=== PATIENT | male | born 1985 | race Caucasian/White ===

== ENCOUNTER 2016-08-13 22:53 | Emergency (ER) | payer OTHER ==
[~2016-08-13] VITALS: Ht 172.7 cm; Wt 92.5 kg
[~2016-08-13 22:53] MED LIST: CIPR500T4 PO; IBUP-1542 PO
[2016-08-13 22:55] VITALS: Ht 172.7 cm; Wt 92.5 kg
[2016-08-14] MEDS ORDERED: AZITHROMYCIN 250 MG TAB PO STA (00:12)
[2016-08-14] MEDS ORDERED: LIDOCAINE 1% (MDV) 20 ML INJ SC STA (00:12)
[2016-08-14] MEDS ORDERED: CEFTRIAXONE 250 MG INJ IM STA (00:12)
[2016-08-14] MEDS ORDERED: ACETAMINOPHEN 325 MG TAB PO STA (00:22)
--- NOTE | 2016-08-14 00:22 | ERD ---
ER Documentation Chief Complaint Date/Time DATE: 08/14/16 TIME: 00:20 Chief Complaint painful/burning urination x 3 days HPI This is a 31-year-old male presenting to the emergency department complaining of painful urination, penile discharge for the past few days. Patient rates as moderate in severity. He states that he had unprotected sex with a woman. He denies any fever. Denies any penile lesions ROS All systems reviewed and are negative except as per history of present illness. Medications Home Meds Active Scripts Ibuprofen* (Motrin*) 600 Mg Tab, 600 MG PO Q6H Y for PAIN AND OR ELEVATED TEMP, #30 TAB Prov:JADEN OLGUIN NP 05/29/16 Ciprofloxacin Hcl* (Ciprofloxacin Hcl*) 500 Mg Tablet, 500 MG PO BID for 5 Days , TAB Prov:AMPARO DAILEY PA-C 03/14/16 Allergies Allergies: Coded Allergies: No Known Allergy (Unverified , 08/13/16) PMhx/Soc Medical and Surgical Hx: pt denies Medical Hx History of Surgery: Yes (foot surgery) Anesthesia Reaction: No Hx Neurological Disorder: No Hx Respiratory Disorders: No Hx Cardiac Disorders: No Hx Psychiatric Problems: No Hx Miscellaneous Medical Probl: No Hx Alcohol Use: No Hx Substance Use: No Hx Tobacco Use: No Physical Exam Vitals Vital Signs Date Time Temp Pulse Resp B/P Pulse Ox O2 Delivery O2 Flow Rate FiO2 08/13/16 22:55 97.3 115 20 143/91 98 Physical Exam GENERAL: well-developed/well-nourished, in no apparent distress, non-toxic appearing HENT: NC/AT, moist mucous membranes EYES: Conjunctiva normal NECK: Supple, no lymphadenopathy PULM: CTA bilaterally, no rales, rhonchi, or wheezing heard CV: Normal S1S2, RRR, good capillary refill GI: Soft, non-distended, non-tender to palpation Normal bowel sounds, no masses or organomegaly felt on exam No gross peritonitis, no bruits Negative Rovsing, negative Campos, negative McBurney's point, Negative CVAT BACK: No masses EXT: No clubbing, cyanosis, or edema NEURO: Alert and Orientated SKIN: Intact, normal turgor PSYCH: Normal mood and mentation Results 24 hrs Current Medications Medications (Trade) Dose Ordered Sig/Keri Route PRN Reason Start Time Stop Time Status Last Admin Dose Admin Azithromycin (Zithromax) 1,000 mg ONCE STAT PO 08/14/16 00:12 08/14/16 00:15 DC Ceftriaxone Sodium (Rocephin) 250 mg ONCE STAT IM 08/14/16 00:12 08/14/16 00:15 DC Lidocaine (Xylocaine 1% (Mdv) 20 ml) 20 ml ONCE STAT SC 08/14/16 00:12 08/14/16 00:15 DC Procedures/MDM This is a 31-year-old male presenting to the emergency department complaining of painful urination and penile discharge for the past 3 days, signs and symptoms most consistent with gonorrhea and chlamydia. I have a low suspicion for bacteremia, nephrolithiasis or pyelonephritis. In the ED patient was given ibuprofen and Tylenol for pain. He was given to a 50 mg IM of ceftriaxone and 1000 mg of azithromycin tablet. I discussed with patient that he suitable to follow-up with the primary care physician for further evaluation management. I discussed return the emergency department for any worsening signs or symptoms. A urine culture and gonorrhea chlamydia urine test sent out. Departure Diagnosis: Primary Impression: Dysuria Condition: Stable Patient Instructions: What Are Sexually Transmitted Diseases (STDs)?, Std, Suspected (Culture Only), Urethritis, Male (Gonorrhea) Referrals: [facility] YOU HAVE RECEIVED A MEDICAL SCREENING EXAM AND THE RESULTS INDICATE THAT YOU DO NOT HAVE A CONDITION THAT REQUIRES URGENT TREATMENT IN THE EMERGENCY DEPARTMENT. FURTHER EVALUATION AND TREATMENT OF YOUR CONDITION CAN WAIT UNTIL YOU ARE SEEN IN YOUR DOCTORS OFFICE WITHIN THE NEXT 1-2 DAYS. IT IS YOUR RESPONSIBILITY TO MAKE AN APPOINTMENT FOR FOLOW-UP CARE. IF YOU HAVE A PRIMARY DOCTOR --you should call your primary doctor and schedule an appointment IF YOU DO NOT HAVE A PRIMARY DOCTOR YOU CAN CALL OUR PHYSICIAN REFERRAL HOTLINE AT IF YOU CAN NOT AFFORD TO SEE A PHYSICIAN YOU CAN CHOSE FROM THE FOLLOWING [facility] [address] [facility] [address] [facility] [address] [facility] [address] [facility] [address] [facility] [facility] [address] Additional Instructions: FOLLOW UP WITH YOUR PRIMARY CARE PHYSICIAN TOMORROW.Return to this facility if you are not improving as expected. Return to this facility if you are not improving as expected. FANTASMA TORRES PA-C Aug 14, 2016 00:22
[2016-08-14 00:25] LABS: ADD UMIC YES; URINE BLOOD (Dip) TRACE (NEGATIVE); URINE COLOR LT. YELLOW (YELLOW); URINE GLUCOSE (Dip) NEGATIVE (NEGATIVE); URINE KETONES (Dip) TRACE (NEGATIVE); URINE LEUKOCYTE ESTERASE (Dip) 2+ (NEGATIVE); URINE NITRITE (Dip) NEGATIVE (NEGATIVE); URINE UROBILINOGEN (Dip) 1.0 E.U./dL (0.1-1.0)
[2016-08-14] MEDS ORDERED: IBUPROFEN 600 MG TAB PO ONE (00:30)
[2016-08-14 00:32] LABS: URINE BILIRUBIN (Dip) NEGATIVE (NEGATIVE); URINE TOTAL PROTEIN (Dip) NEGATIVE (NEGATIVE)
[2016-08-14 00:48] LABS: BACTERIA,URINE MANY; MUCUS,URINE MODERATE; SQUAMOUS EPITHELIAL CELL,UR FEW
== END 2016-08-14 00:49 | disposition home or self-care (01) ==
LOC: FTE 22:53
DX: R30.0 Dysuria (principal)
CPT/HCPCS: 81001; 87086; 87591; 96372; J0696; Z7502; Z7610; 81003

== ENCOUNTER 2018-09-13 04:55 | Emergency (ER) | payer OTHER ==
[~2018-09-13] VITALS: Ht 172.7 cm; Wt 91.0 kg
[2018-09-13 05:15] VITALS: Ht 172.7 cm; Wt 91.0 kg
--- NOTE | 2018-09-13 07:51 | ERD ---
ER Documentation Chief Complaint Chief Complaint frequent/frequent urination x 4 days HPI This is a 33-year-old male presents to the ED with complaints of urinary frequency and urgency times 4 days. He states he has a history of UTI, last treated in 2017. He denies any associated fevers, chills, back pain, flank p ain, abdominal pain or any other symptoms. He states he is here with his partner who presents with similar symptoms. He reports unprotected sexual intercourse with his partner who may have been exposed to a STD. He denies any penile discharge or pain. He is requesting screening for STDs and treatment here as well. ROS All systems reviewed and are negative except as per history of present illness. Medications Home Meds Active Scripts Ciprofloxacin Hcl* (Ciprofloxacin Hcl*) 500 Mg Tablet, 500 MG PO BID for 7 Days, TAB Prov:WILLIAM LOUIS PA-C 09/13/18 Ibuprofen* (Motrin*) 600 Mg Tab, 600 MG PO Q6H PRN for PAIN AND OR ELEVATED TEMP, #30 TAB Prov:JADEN OLGUIN NP 05/29/16 Ciprofloxacin Hcl* (Ciprofloxacin Hcl*) 500 Mg Tablet, 500 MG PO BID for 5 Days, TAB Prov:AMPARO DAILEY PA-C 03/14/16 Allergies Allergies: Coded Allergies: No Known Allergy (Unverified , 08/13/16) PMhx/Soc History of Surgery: Yes (foot surgery) Anesthesia Reaction: No Hx Neurological Disorder: No Hx Respiratory Disorders: No Hx Cardiac Disorders: No Hx Psychiatric Problems: No Hx Miscellaneous Medical Probl: No Hx Alcohol Use: No Hx Substance Use: No Hx Tobacco Use: No Physical Exam Vitals Vital Signs Date Temp Pulse Resp B/P (MAP) Pulse Ox O2 O2 Flow FiO2 Time Delivery Rate 09/13/18 98.0 89 16 148/67 97 Room Air 10:21 (94) 09/13/18 97.2 119 18 148/90 97 05:15 (109) Physical Exam Const: No acute distress Head: Atraumatic Eyes: Normal Conjunctiva ENT: Normal External Ears, Nose and Mouth. Neck: Full range of motion. No meningismus. Resp: Clear to auscultation bilaterally Cardio: Regular rate and rhythm, no murmurs Abd: Soft, non tender, non distended. Normal bowel sounds Exam: Scrotum: Normal Hernia: None Testes/Epid: Non-tender w/ normal lie Cremaster: Reflex intact Lymph: No inguinal lymphadenopathy Discharge: None Skin: No petechiae or rashes Back: No midline or flank tenderness Ext: No cyanosis, or edema Neur: Awake and alert Psych: Normal Mood and Affect Results 24 hrs Laboratory Tests Test 09/13/18 08:10 Urine Color OSCAR Urine Clarity SLIGHTLY CLOUDY Urine pH 5.0 Urine Specific [place] 1.029 Urine Ketones NEGATIVE mg/dL Urine Nitrite NEGATIVE mg/dL Urine Bilirubin NEGATIVE mg/dL Urine Urobilinogen 2+ mg/dL Urine Leukocyte Esterase 2+ Carmella/ul Urine Microscopic RBC 6 /HPF Urine Microscopic WBC 28 /HPF Urine Squamous Epithelial Cells FEW /HPF Urine Bacteria FEW /HPF Urine Mucus MANY /HPF Urine Hemoglobin NEGATIVE mg/dL Urine Glucose 1+ mg/dL Urine Total Protein NEGATIVE mg/dl Current Medications Medications Dose Sig/Keri Start Time Status Last (Trade) Ordered Route PRN Stop Time Admin Dose Reason Admin Ceftriaxone 250 mg ONCE ONCE 09/13/18 DC 09/13/18 Sodium IM 08:00 08:31 (Rocephin) 09/13/18 08:01 1,000 mg ONCE ONCE 09/13/18 DC 09/13/18 Azithromycin PO 08:00 08:31 (Zithromax) 09/13/18 08:01 Procedures/MDM LABS & DIAGNOSTIC IMAGING: UA: + leuk esterase, hematuria an pyuria Ucx: pending GC/CT NAAT: pending ED COURSE: The patient was given IM Rocephin and 1g Azithromycin The medication was well tolerated. The patient remained stable throughout ED course. MEDICAL DECISION MAKIN yo sexually active M presents with urinary frequency, urgency or hematuria. Reports possible STD exposure. Physical exam including exam essentially unremarkable. UA consistent with UTI however given pt's history of high risk sexual activity, will also treat prophylactically for gonorrhea and chlamydia. Given IM rocphein and PO Azithormycin here. Ucx pending. GC/CT NAAT pending. Pt is afebrile and VS are stable. He was given rx Cipro. No evidence of sepsis, severe dehydration, nephrolithiasis or pyelonephritis. Recommended f/u with PCP in 2 days, return for any new or worsening sx. He is here with his partner who is also requesting treatment and testing for STDs. PRESCRIPTIONS: Cipro SPECIALIST FOLLOW UP RECOMMENDED: None Patient has been advised to follow up with primary care physician 1--2 days. Patient's blood pressure was elevated (>120/80) but appears stable without evidence of hypertension emergency or urgency. The patient was counseled about the risks of hypertension and urged to pursue outpatient monitoring and therapy within a week with their primary care physician Departure Diagnosis: Primary Impression: UTI (urinary tract infection) Urinary tract infection type: site unspecified Hematuria presence: with hematuria Qualified Codes: N39.0 - Urinary tract infection, site not specified; R31.9 - Hematuria, unspecified Additional Impression: Possible exposure to STD Condition: Stable Patient Instructions: If You Think You Have an STD, Understanding Urinary Tract Infections (UTIs) Referrals: [facility] Additional Instructions: Call your primary care doctor TOMORROW for an appointment during the next 2-4 days and bring all the information and medications prescribed. If the symptoms get worse and your provider is unavailable, return to the Emergency Department immediately. WILLIAM LOUIS PA-C Sep 13, 2018 07:51
[2018-09-13] MEDS ORDERED: CEFTRIAXONE 250 MG INJ IM ONE (08:00)
[2018-09-13] MEDS ORDERED: AZITHROMYCIN 500 MG TAB PO ONE (08:00)
[2018-09-13] MEDS ORDERED: CIPR500T4 PO (09:53)
[2018-09-13 10:21] VITALS: BP 148/67; PULSE 89; RESP 16
== END 2018-09-13 10:15 | disposition home or self-care (01) ==
LOC: FTE 04:55
DX: N39.0 Urinary tract infection, site not specified (principal)
CPT/HCPCS: 81001; 87086; 87591; 96372; J0696; Z7502; Z7610